=== PATIENT | male | born 1950 | race Caucasian/White ===

== ENCOUNTER → 2018-10-22 | Outpatient (CLI) | payer OTHER, MEDICARE | LOC: BHFA 11:00 | PROVIDERS: ATTEND Internal Medicine Interventional Cardiology | DX: R07.9 Chest pain, unspecified (principal) ==

== ENCOUNTER 2018-10-24 11:13 | Day surgery (SDC) | payer OTHER, MEDICARE ==
[2018-10-24] MEDS ORDERED: LR 1,000 ML IV ONE (11:36)
[2018-10-24] MEDS ORDERED: ceFAZolin 2 GM/DEXTROSE 100 ML IV ONE (11:49)
[2018-10-24] MEDS ORDERED: BUPIVACAINE 0.5% 30 ML SDV ONE (12:25)
[2018-10-24] MEDS ORDERED: BACITRACIN 50,000 UNITS/10 ML SYR IRR ONE (12:25)
[2018-10-24] MEDS ORDERED: DEXAMETHASONE 4 MG/ML VIAL ONE (12:25)
[2018-10-24] MEDS ORDERED: ROPIVACAINE HCL 150 MG/30 ML INJ ONE ×2 (12:25→15:21)
[2018-10-24] MEDS ORDERED: LIDOCAINE 1% 300 MG/30 ML SDV ONE (12:25)
--- NOTE | 2018-10-24 12:37 | PDHPUP ---
History & Physical Update H&P update statement: This history and physical update is based on an assessment of the patient which was completed after admission or registration (within 24 hours), but prior to the surgery/procedure. H&P update: H&P reviewed & patient examined (no changes in health), no change in patient's condition since H&P completed
[2018-10-24] MEDS ORDERED: LIDOCAINE 2% 5 ML SDV ONE (12:51)
[2018-10-24] MEDS ORDERED: MIDAZOLAM 2 MG/2 ML VIAL ONE (12:51)
[2018-10-24] MEDS ORDERED: fentaNYL 100 MCG/2 ML INJ ONE (12:51)
[2018-10-24] MEDS ORDERED: PROPOFOL/EMULSION 500 MG/50 ML BOTTLE IV ONE ×2 (12:52→13:14)
--- NOTE | 2018-10-24 13:19 | PDANEPAE ---
ANE History of Present Illness Bunion on R, here for bunionectomy ANE Past Medical History - Cardiovascular History Hx Hypertension: Yes Hx Arrhythmias: No Hx Chest Pain: No Hx Coronary Artery / Peripheral Vascular Disease: Yes Hx CHF / Valvular Disease: No Hx Palpitations: Yes Cardiovascular History Comment: CAD. HYPERLIPIDEMIA. HX OF PALPITATIONS. RECENTLY SEEN BY [facility] - Pulmonary History Hx COPD: No Hx Asthma/Reactive Airway Disease: No Hx Recent Upper Respiratory Infection: No Hx Oxygen in Use at Home: No Hx Sleep Apnea: No Sleep Apnea Screening Result - Last Documented: Positive Pulmonary History Comment: [facility] - Neurologic History Hx Cerebrovascular Accident: No Hx Seizures: No Hx Dementia: No - Endocrine History Hx Diabetes: No - Renal History Hx Renal Disorders: Yes Renal History Comment: BPH - Liver History Hx Hepatic Disorders: No - Neurological & Psychiatric Hx Hx Neurological and Psychiatric Disorders: No - Cancer History Hx Cancer: No - Congenital Disorder History Hx Congenital Disorders: No - GI History Hx Gastrointestinal Disorders: Yes Gastrointestinal History Comment: HX OF COLON POLYPS - Other Health History Other Health History: GOUT. WEARS READING GLASSES. RECENT RASHES THAT HE WAS GIVEN CREAMS FOR AND THEY ARE HEALED - Chronic Pain History Chronic Pain: Yes (RIGHT FOOT) - Surgical History Prior Surgeries: RIGHT KNEE SCOPES X2. RIGHT TKA 2012. BUNIONECTOMY ON LEFT FOOT ANE Review of Systems Review of Systems: - Exercise capacity METS (RN): 4 METS ANE Patient History - Allergies Allergies/Adverse Reactions: No Known Allergies Allergy (Verified 10/23/18 16:00) - Home Medications Home Medications: ALLOPURINOL [Allopurinol 100 mg] 11/27/11 [Last Taken 10/24/18 08:00] SIMVASTATIN [Zocor] 11/27/11 [Last Taken 10/23/18 18:00] Metoprolol Tartrate 10/05/16 [Last Taken 10/23/18 18:00] Aspirin EC [Aspirin EC 81 mg (*)] 10/14/18 [Last Taken 10/23/18] Herbals/Supplements -Info Only 10/23/18 [Last Taken 10/23/18] - NPO status NPO Since - Liquids (Date): 10/23/18 NPO Since - Liquids (Time): 23:00 NPO Since - Solids (Date): 10/23/18 NPO Since - Solids (Time): 23:00 - Smoking Hx Smoking Status: Never smoked - Family Anes Hx Family Hx Anesthesia Complications: NONE ANE Labs/Vital Signs - Vital Signs Blood Pressure: 141/98 Heart Rate: 66 Respiratory Rate: 16 O2 Sat (%): 98 Height: 177.8 cm Weight: 74.843 kg ANE Physical Exam - Airway Neck exam: FROM Mallampati Score: Class 1 Mouth exam: normal dental/mouth exam - Pulmonary Pulmonary: no respiratory distress - Cardiovascular Cardiovascular: regular rate and rhythym - ASA Status ASA Status: II ANE Anesthesia Plan Anesthesia Plan: GA with mask, MAC Total IV Anesthesia: Yes
[2018-10-24] MEDS ORDERED: HYDROmorphONE/DILAUDID 2 MG/ML INJ IVP PRN (15:36)
[2018-10-24] MEDS ORDERED: LR 500 ML IV PRN (15:36)
[2018-10-24] MEDS ORDERED: fentaNYL 100 MCG/2 ML INJ IVP PRN (15:36)
[2018-10-24] MEDS ORDERED: ONDANSETRON 4 MG/2 ML VIAL IVP PRN (15:36)
[2018-10-24] MEDS ORDERED: MEPERIDINE 25 MG/0.5 ML AMP IVP PRN (15:36)
[2018-10-24] MEDS ORDERED: NALOXONE HCL 0.4 MG/ML INJ IVP PRN (15:36)
[2018-10-24] MEDS ORDERED: oxyCODONE IR 5 MG TAB PO PRN (15:36)
[2018-10-24] MEDS ORDERED: DEXAMETHASONE 4 MG/ML VIAL IVP PRN (15:36)
[2018-10-24] MEDS ORDERED: ACETAMINOPHEN 500 MG TAB PO PRN (15:36)
[2018-10-24] MEDS ORDERED: PROMETHAZINE HCL 25 MG/ML INJ IVP PRN (15:36)
[2018-10-24] MEDS ORDERED: ONDANSETRON 4 MG/2 ML VIAL ONE (15:50)
--- NOTE | 2018-10-24 15:51 | POSTOPPROG ---
Post Op Note Date of Operation: 10/24/18 Surgeon: Laney Mata Html Web Developer: Monet Mata Pre-op Diagnosis: hallux rigidus with valgus deformity, capsulitis / metatarsalgia 2nd MTPJ, R Post-op Diagnosis: hallux rigidus w/valgus/advanced OA to both first MTPJ and 2nd MTPJ, R Indication: pain Procedure: arthrodesis first MTPJ, decompression osteotomy&cheilectomy 2nd MTPJ, R Findings: advanced OA with gout, cystic changes first MTPJ Inf/Abcess present in the surg proc area at time of surgery?: No EBL: Minimal Complications: none Specimen(s): none
--- NOTE | 2018-10-24 16:31 | POSTANESTH ---
Post Anesthetic Evaluation Cardiovascular Status: Normal, Stable Respiratory Status: Normal, Stable Level of Consciousness/Mental Status: Can Participate in Eval Pain Control: Adequate, Prn Tx Ordered Nausea/Vomiting Control: Adequate, Prn Tx Ordered Complications Possibly Related to Anesthesia: None Noted
[2018-10-24 16:58] VITALS: BP 130/86
--- NOTE | 2018-10-25 05:58 | GOP ---
DATE OF OPERATION: 10/24/2018 SURGEON: Laney Mata DPM RECORDS TECHNICIAN: Monet Mata DPM. ANESTHESIA: IV sedation and local anesthetic block, light general. ANESTHESIOLOGIST: Caitlin Jordan DO. PREOPERATIVE DIAGNOSIS: Painful hallux rigidus with valgus deformity with advanced osteoarthritis, capsulitis with 2nd metatarsophalangeal joint metatarsalgia, all right foot. POSTOPERATIVE DIAGNOSIS: Painful hallux rigidus with valgus deformity with confirmed advanced osteoarthritis to the 1st metatarsophalangeal joint with a large subchondral cyst and findings consistent with gout, advanced osteoarthritis to the 2nd metatarsophalangeal joint with peripheral bone spurring, all right foot. PROCEDURE PERFORMED: First metatarsophalangeal joint arthrodesis with plate and screw fixation and use of Cornelia graft material, cheilectomy of the 2nd metatarsophalangeal joint along with subchondral drilling and shortening, decompression osteotomy to the 2nd metatarsal, all right foot. FINDINGS: DJD to the 2nd and 3rd MTPJ's. INDICATIONS: The patient presented to the hospital approximately an hour and a half prior to foot surgery after having been n.p.o. past midnight. Patient's preoperative history and physical, and all lab studies were reviewed, and there were no contraindications to the proposed procedures. The patient was given Ancef 2 g 0.5 hour prior to foot surgery. DESCRIPTION OF PROCEDURE: Patient was taken to the OR room and placed on the OR table in a supine position where the appropriate anesthetic agents were administered. This was supplemented with a local block to the right foot utilizing a total of 30 cc of 0.5% Naropin along with 7 cc of 1% lidocaine plain given to the posterior tibial nerve as it courses through the tarsal tunnel, and given in a Esparza block fashion to the bases of the 1st and 2nd metatarsals. The right lower extremity was then prepped and draped in the usual aseptic fashion and covered with a sterile stockinette. A sterile pneumatic ankle tourniquet was applied and padded well underneath with padding. Utilizing elevation of the overlying Esmarch bandage, the right foot was exsanguinated and the tourniquet was inflated to a pressure of 220 mmHg. The foot was then lowered to the orthopedic table and attention was then first directed to the dorsal aspect of the 2nd metatarsophalangeal joint where an approximate 4 cm linear longitudinal incision was initiated just distal to the 2nd metatarsophalangeal joint, extended proximally, centered over the 2nd metatarsal. There was fullness and distention to the joint. An incision was made through the skin to the level of the subcutaneous tissues and then to the level of the capsular tissues taking care to preserve neurovascular structures. Any bleeders were clamped and cauterized as needed. A linear capsular incision was made in the same plane as the skin incision, and there was exuberant synovitis to the joint. The capsular tissues were reflected off the dorsal aspect of the 2nd metatarsal head and base of the proximal phalanx. The metatarsophalangeal joint was inspected and approximately 50% to 75% of the articular cartilage was denuded off the central aspect of the head of the 2nd metatarsal. There was hypertrophy of bone to the dorsal aspect head of the 2nd metatarsal and to the base of the proximal phalanx. This hypertrophic bone was resected and placed on the back table. Utilizing a 0.045 K-wire, drill holes were created to the area of denuded cartilage on the head of the 2nd metatarsal and to the base of the proximal phalanx. There was also significant absence of cartilage to the level of subchondral bone. A few loose fragments were identified and resected, and placed on the back table. A decision was made to decompress the joint in view of findings. An osteotomy was then performed in a dorsal distal to plantar proximal direction, initiated dorsal distal aspect of the head of the 2nd metatarsal extending plantarly and proximally. The osteotomy was a long oblique osteotomy. The 2nd metatarsal head was then allowed to drift 4 mm proximally, and then the osteotomy site was temporarily fixated with a 0.054 K- wire advanced in a dorsal to plantar direction. The 2 K-wires to the cannulated 2.4 OsteoMed headless screw system were then advanced in a dorsal plantar direction across the osteotomy site. Drill holes were then created over the K-wires and the 2.4 OsteoMed screws were advanced over the guidewires, which measured 16 and 14 mm in length. All 3 K-wires were removed, and the ostomy site was stable and well aligned. The dorsal distal edge of bone was resected, and any remaining prominent bony borders were remodeled to a smooth surface with a rasp. The surgical site was copiously irrigated with a sterile saline bacitracin solution. The osteotomy site and screw placement were checked with the C-arm and optimal. The capsular tissues were reapproximated with 2-0 and 3-0 Vicryl. The subcutaneous tissues reapproximated with 4-0 Monocryl. Sterile saline impregnated gauze was placed over the surgical site and attention was then directed to the 1st ray. Attention was then directed to the 1st metatarsophalangeal joint where an approximate 6 cm linear longitudinal incision was made, initiated distal to the 1st metatarsophalangeal joint and extended proximally just medial to the extensor hallucis longus tendon. Incision was deepened through the subcutaneous tissues to the level of the capsular tissues, taking care to preserve the neurovascular structures. The bleeders were clamped and cauterized as needed. A linear capsular incision was made in the same plane as the skin incision, and the capsular tissues reflected off the dorsal and medial aspects of the head of the 1st metatarsal, base of the proximal phalanx, distal shaft of the 2nd metatarsal and proximal shaft of the proximal phalanx. The hypertrophic exuberant bone to the medial aspect of 1st metatarsal head was resected and placed on the back table. The hypertrophic bone, which presented to the dorsal and medial aspect of the base proximal phalanx, was resected and from the dorsal aspect of the 1st metatarsal head, and placed on the back table. A large subchondral cyst measuring 5-6 mm in circumference was identified to the medial aspect of the 1st metatarsal, which was filled with a serosanguineous fluid. The site was curetted and flushed. It should be mentioned that tophaceous gout like material presented to the medial aspect head of the 1st metatarsal, but was also identified to the medial and lateral aspects of the 2nd metatarsal head prior to performance of the osteotomy. The tophaceous gout material was resected and placed on the back table to both the 1st and 2nd metatarsals. The 1st metatarsophalangeal joint was inspected, and there was advanced degenerative joint disease with erosion of the articular cartilage to subchondral bone involving at least 75% of the joint. The 1st metatarsal head was then exposed and a guidewire was placed through the central aspect of the head of the 1st metatarsal in a distal to proximal fashion to serve as an axis guide for the reamer provided by the [employer] System. The reamer was placed over the guidewire and the articular cartilage from the head of the 1st metatarsal was resected to the level of subchondral bone removing all remaining articular cartilage. The guidewire was removed and the surgical site was copiously irrigated with a sterile saline, bacitracin solution. The exuberant hypertrophic bone to the rim of the 1st metatarsal head was then resected with a rongeur. Attention was then directed to the base of the proximal phalanx of the hallux where a guidewire was placed through the central aspect of the base to serve as an axis guide. Placement of both pins was checked with the C-arm. Utilizing the reamer provided by the [employer] System, the remaining articular cartilage at the base of the proximal phalanx was resected to the level of subchondral bone. The K-wire was removed and any remaining prominent bony borders were remodeled to a smooth surface. The surgical site was copiously irrigated with a sterile saline, bacitracin solution. The fusion site was then prepared on both sides by fenestrating the bone with a drill bit, and an osteotome and mallet. Cornelia bone graft was then placed into the area of the subchondral cyst and then upon the head of the 1st metatarsal. The proximal phalanx was then held flush against the 1st metatarsal head in the proposed alignment and a size medium MTP plate, 5 degrees , was placed dorsal to the fusion site and secured on with olive pins. The K- wire for the headless [employer] Screw System was then placed utilizing the guide attached to the plate in a distal medial to proximal lateral direction crossing the fusion site. A C-arm was utilized to evaluate alignment of the fusion site , which was optimal. Utilizing the standard technique for the [employer] System, the compression screw site was drilled, countersunk, and a 3.5 headless paragon screw measuring 22 mm in length was placed across the guidewire. The guidewire was removed and the fusion site was stable and well aligned when checked with the C-arm. The fusion site drifted in a slightly more varus position, but was still acceptable and in good alignment. Attention was then directed to the distal aspect of the plate where to one of the proximal arms, a 3.5 locking headless [employer] screw measuring 18 mm in length was placed. The olive pins were removed and an 18 mm 3.5 compression screw was placed to the compression hole. Attention was directed then to the base of the proximal phalanx where the remaining 2 holes were drilled and two 2.7 locking screws were placed, one measuring 13 mm in length and the other 15 mm in length. Attention was then directed to the 1st metatarsal head region where the remaining screw holes were drilled, measured and filled with locking screws, one was a 3.5 x 18 mm locking screw and the other was a 2.7 x 16 mm locking screw. The fusion site was very stable and fixation was checked with the C-arm in the AP and lateral views. The surgical site was copiously irrigated with a sterile saline, bacitracin solution. The tourniquet was released. There was immediate capillary refill to all digits and there was hemostasis. The capsular tissues were reapproximated with 2-0 and 3-0 Vicryl. Subcutaneous tissues reapproximated with 4-0 Monocryl and then the skin with 4-0 Prolene. An additional 10 cc of 0.5% Naropin was injected proximal to the surgical sites. A mildly compressive dry sterile gauze dressing was applied with Xeroform, 4 x 4 gauze, Tunde, Kerlix , and Freedom wraps. The patient tolerated the procedures and anesthesia well, was transferred to the recovery room with vital signs stable and vascular status intact to the right lower extremity. In the recovery room, the patient received postoperative oral and written home care instructions. The patient was instructed on nonweightbearing on the right foot until his 1st postoperative visit. He is permitted to bear weight on the heel for balance as needed. The patient is to use crutches or a Roll-A-Bout for ambulation assist. Postoperative prescriptions were given for OxyContin and Percocet to take postoperatively as prescribed for pain. The patient was dispensed a Cryo/Cuff and instructed on its usage. Also instructions were reviewed for DVT prevention involving ankle and knee pumps, which he can start tomorrow. He can resume taking his fish oil and baby aspirin tomorrow. The procedure went well without complications. He is scheduled for a 1st postoperative visit in 2 days , advised to call the office earlier if any questions or problems should arise. /[id number]/MODL MTDD
== END 2018-10-24 16:58 | disposition home or self-care (01) ==
LOC: FSGY 11:13
PROVIDERS: ATTEND Podiatrist
DX: M20.21 Hallux rigidus, right foot (principal); M20.11 Hallux valgus (acquired), right foot; Z82.49 Family history of ischemic heart disease and other diseases of the circulatory system; M10.071 Idiopathic gout, right ankle and foot; M77.41 Metatarsalgia, right foot; N40.0 Benign prostatic hyperplasia without lower urinary tract symptoms; I25.10 Atherosclerotic heart disease of native coronary artery without angina pectoris; E78.5 Hyperlipidemia, unspecified; Z86.010 Personal history of colon polyps; M54.9 Dorsalgia, unspecified; Z96.651 Presence of right artificial knee joint; I10 Essential (primary) hypertension; M19.071 Primary osteoarthritis, right ankle and foot; M77.51 Other enthesopathy of right foot and ankle
CPT/HCPCS: C1713; C1762; J0690; J1100; J2250; J2405; J2704; J2795; J3010

== ENCOUNTER → 2018-11-15 | Outpatient (CLI) | payer OTHER, MEDICARE | LOC: BHFA 10:45 | PROVIDERS: ATTEND Internal Medicine Interventional Cardiology | DX: R07.9 Chest pain, unspecified (principal); I25.10 Atherosclerotic heart disease of native coronary artery without angina pectoris; I11.9 Hypertensive heart disease without heart failure ==